=== PATIENT | male | born 1995 | race Caucasian/White ===

== ENCOUNTER → 2022-04-11 | Outpatient (CLI) | payer OTHER, SELFPAY ==
[2022-04-11 11:02] LABS: Pathologist Comment May follow
[2022-04-11 12:51] LABS: AUTO B FLUID DILUENT BKGD CT WBC <0.1 RBC <0.01 (W<.1,R<.01); Appearance /Synovial Fluid Cloudy (CLEAR); Color / Synovial Fluid Yellow (Pale Yellow); Source / Synovial Fluid NOT PROVIDED; Source- Body Fluid SYNOVIAL
[2022-04-11 12:52] LABS: RBC /Synovial Fluid 0.004 10^6/uL (0); Synovial Fld Mononuclear WBC # 6.544 10^3/ul; Synovial Fld Mononuclear WBC % 13.6 %; Synovial Fld Polynuclear WBC % 86.4 %
[2022-04-11 12:53] LABS: Lymph 2 %; Monocyte /Synovial Fluid 4 %; Neutrophil 94 % (0-25)
[2022-04-11 12:54] LABS: Body Fluid QC Type(s) BF1Q
[2022-04-11 12:57] LABS: CRYSTALS, BODY FLUID NO CRYSTALS SEEN
[2022-04-13 09:40] LABS: Pathologist Review Reviewed
== END | disposition home or self-care (01) ==
LOC: LABSPEC 10:49
PROVIDERS: PCP Family Medicine; Visit Provider Orthopaedic Surgery
DX: S83.91XA Sprain of unspecified site of right knee, initial encounter (principal); M25.461 Effusion, right knee; X58.XXXA Exposure to other specified factors, initial encounter
CPT/HCPCS: 87015; 87070; 87075; 87101; 87116; 87205; 87206; 89050; 89051; 89060

== ENCOUNTER → 2022-04-12 | Outpatient (CLI) | payer OTHER, SELFPAY ==
[2022-04-12 10:22] LABS: Absolute Lymphocyte Count 1.82 X10^3/uL (0.83-4.51); Absolute Neutrophil Count 5.6 X10^3/uL (2.0-7.7); Basophil# 0.04 X10^3/uL; Basophil% 0.5 % (0-1); Eosinophil# 0.21 X10^3/uL; Eosinophils% 2.5 % (0-5); Hematocrit 46.4 % (40-54); Hemoglobin 15.6 g/dL (13.0-16.5); Lymphocyte # 1.82 X10^3/ul (0.83-4.51); Lymphocyte % 21.3 % (19-41); Mean Corp Hgb Conc 33.6 g/dL (32-36); Mean Corpuscular Hgb 29.7 pg (27.0-32.0); Mean Corpuscular Volume 88.4 fL (80-94); Monocyte# 0.81 X10^3/uL; Monocyte% 9.5 % (0-10); NRBC Flagged by Analyzer 0 % (0-5); Neutrophil # 5.62 X10^3/uL (2.7-7.7); Neutrophil % 65.7 % (47-70); Platelet Count 302 K/mm3 (150-450); RBC Distribution Width CV 11.4 % (11.6-14.6); RBC Distribution Width SD 36.8 fl (35.1-43.9); Red Blood Count 5.25 M/mm3 (4.6-6.2); White Blood Count 8.5 K/mm3 (4.4-11.0)
[2022-04-12 10:24] LABS: Erythrocyte Sedimentation Rate 10 mm/hr (0-20)
== END | disposition home or self-care (01) ==
LOC: LAB 09:26
PROVIDERS: PCP Family Medicine; Referring Provider Orthopaedic Surgery; Visit Provider Orthopaedic Surgery
DX: M25.461 Effusion, right knee (principal)
CPT/HCPCS: 36415; 85025; 85652; 86140

== ENCOUNTER 2022-04-16 16:21 | Inpatient (IN) | payer OTHER, SELFPAY ==
[2022-04-16] VITALS (9 sets, daily range): BP systolic 111–168; BP diastolic 50–99; PULSE 74–118; RESP 16–20; TEMP 36.9–37.7; O2SAT 97–100; BMI 27.8
[2022-04-16] MEDS: Lactated Ringers 1,000 ML 15 ML IV (14:44)
--- NOTE | 2022-04-16 16:45 | PCM.OP.BLANK ---
Problems Associated Problem List Diagnoses (1) Effusion of knee joint right: Operative Report Date of Procedure: 04/16/22 Preoperative diagnosis: Right knee effusion, possible septic knee Postoperative diagnosis : Same Procedure: Diagnostic video arthroscopy, right knee arthroscopic irrigation and debridement, cultures fluid and soft tissue, drain placement Surgeon: Dr. Denver Tenorio Anesthesia: General Special medications: Ancef 1 g IV given after cultures obtained. Indications for surgery: Patient is a 26 -year-old male with a 3-4 week history of right knee pain, swelling. Patient failed adequate nonoperative treatment for the knee pain. Fluid studies and laboratory work discussed with patient. Due to persistent symptoms they wish to proceed with knee arthroscopy. Findings: Intraoperative findings were consistent with preoperative history, physical, radiographic exam. Large knee effusion and hypertrophic synovium consistent with probable infection Details of procedure: Patient was taken to the OR transfer to the OR table. Nonoperative limb was appropriately padded, RENEA hose and SCD applied. Patient was placed under the anesthetic agent. Operative knee was examined. No signs of infection. Operative upper thigh was well-padded and ultimately placed in a well-padded thigh bhagat. Operative lower extremity was prepped and draped in usual orthopedic sterile fashion for the procedure. Local anesthetic agent was sterilely injected into the proposed arthroscopic portals. Lateral portal was established with a knife. Took us through skin only. Dull trocar took us into the joint. The scope was placed through the lateral portal. Large knee effusion noted. Fluid sent for appropriate studies, cultures. Medial portal and ultimately established using a spinal needle followed by a knife through skin, followed by a dull trocar into the joint. Probe was placed to the medial portal. Patellofemoral joint: No significant arthritis was noted. Patella tracked nicely. No significant plica noted. Diffuse synovitis noted throughout all compartments of knee and arthroscopicly debrided. Arthroscopic grasper used to remove tissue at the anterior knee and patellofemoral joint for cultures. Medial and lateral gutter: No loose bodies or pathology noted other than synovitis Intercondylar notch: ACL appeared within normal limits. Nice resting tension. No loose bodies or cystic changes noted. Synovitis noted in the anterior soft tissue Medial compartment: Chondral surfaces were within normal limits. No obvious medial meniscus tear noted and compartment fully probed. Synovitis noted Lateral compartment: Chondral surfaces are within normal limits. No obvious lateral meniscus tear noted, and compartment fully probed. Synovitis noted Posterior medial compartment: No loose bodies or pathology noted. Posterior lateral compartment: No loose bodies or pathology noted. Arthroscopic pictures were taken and saved throughout the procedure. I did place a drain at the superior lateral knee, medium Hemovac. Knee was drained of excess fluid. Arthroscopic instruments were removed. Arthroscopic portals closed with simple sutures of 4-0 nylon. Drain site closed with a 4-0 nylon. Drain was not sutured in place. Drain held in place with long Steri-Strips. . sterile bandage was applied. Patient was transferred to the room bed and recovery room in satisfactory condition. Patient will be admitted. Infectious disease service consulted. Case previously discussed with Dr. Sapp. They will be discharged to home when stable and okay with infectious disease service., follow-up in the office in 7-10 days. Patient and the family understand discharge instructions, all of their questions answered. This note was generated with [employer] software. It may contain incorrect words, spelling, and punctuation that were not noted in checking the note before signing.
[2022-04-16] MEDS: Cefazolin 1 GM/50 ML BAG IV (17:29)
[2022-04-16 17:41] LABS: Pathologist Comment May follow
[2022-04-16] MEDS: Epinephrine (1 mg/ml) 1 MG/ML VIAL (17:49)
[2022-04-16 17:55] LABS: Synovial Fld Mononuclear WBC # 4.907 10^3/ul; Synovial Fld Mononuclear WBC % 19.5 %; Synovial Fld Polynuclear WBC % 80.5 %
[2022-04-16 18:05] LABS: RBC /Synovial Fluid 0.008 10^6/uL (0)
[2022-04-16 18:09] LABS: AUTO B FLUID DILUENT BKGD CT WBC <0.1 RBC <0.01 (W<.1,R<.01); Color / Synovial Fluid Yellow (Pale Yellow); Source / Synovial Fluid RIGHT KNEE; Source- Body Fluid SYNOVIAL; Viscosity / Synovial Fluid Sl. Viscous (HIGH)
[2022-04-16 18:10] LABS: Appearance /Synovial Fluid Turbid (CLEAR)
[2022-04-16 18:11] LABS: CRYSTALS, BODY FLUID NO CRYSTALS SEEN
[2022-04-16 18:26] LABS: Lymph 3 %; Neutrophil 97 % (0-25)
[2022-04-16 19:26] LABS: Body Fluid QC Type(s) BF1Q,BF2Q
[2022-04-16] MEDS: 0.9% Normal Saline 1,000 ML 120 ML IV (20:12)
[2022-04-16] MEDS: HYDROcodone Bitartrate/Apap 5/325 Tablet PO (22:39)
[2022-04-17] VITALS (7 sets, daily range): BP systolic 140–156; BP diastolic 81–95; PULSE 90–98; RESP 16–18; TEMP 36.6–37.1; O2SAT 97–100
[2022-04-17] MEDS: Cefazolin 1 GM/50 ML BAG IV (06:11)
[2022-04-17] MEDS: 0.9% Normal Saline 1,000 ML 120 ML IV ×2 (06:12→13:46)
[2022-04-17] MEDS: HYDROcodone Bitartrate/Apap 5/325 Tablet PO ×3 (06:12→20:20)
--- NOTE | 2022-04-17 07:26 | PCM.PN.ORT ---
Subjective Subjective Patient is a 26-year-old male who underwent irrigation debridement of right knee yesterday evening for suspected underlying septic right knee joint. Patient states that knee has been fairly painful. May be slightly worse than before surgery. He does feel the pain medicines are helping. He currently denies any chest pain shortness of breath dizziness or calf pain. No adverse events overnight. Objective Data Objective Data Patient has significant other at bedside during exam. He is alert and oriented x3. No acute distress at rest. Breathing easily without respiratory distress. Inspection of right knee reveals intact dressing without active drainage. Drain is intact. Minimal bloody drainage within the Hemovac drain. (Per nursing documentation there was 30 cc of bloody drainage from postsurgical and so 4 AM) there is stiffness and pain for attempted needing mobility. Negative Mireille bilaterally without signs DVT. Pedal pulses present equal bilaterally. Sensation intact to light touch bilaterally. Neurovascularly intact. Vital Signs: Vital Signs Temp Pulse Resp BP Pulse Ox O2 Del Method 97.9 F 92 16 151/83 H 99 Room Air 04/17/22 04:02 04/17/22 04:02 04/17/22 04:02 04/17/22 04:02 04/17/22 04:02 04/17/22 04:02 Oxygen Delivery Method Room Air Weight: 90.4 kg Body Mass Index (BMI) 27.8 Intake & Output: Intake and Output for Last 24 Hours 04/15/22 04/16/22 04/17/22 23:59 23:59 23:59 Intake Total 50 / 50 2082.75 / 2082.75 Output Total 30 / 30 Balance 50 / 50 2052.75 / 2052.75 Lab / Micro Data Labs: Laboratory Results - last 24 hr 04/16/22 17:39: Fluid Crystals NO CRYSTALS SEEN, Fluid Crystal Source SYNOVIAL, Fl Crystal Path Review Will follow, Synovial Source RIGHT KNEE, Synovial Color Yellow, Synovial Appearance Turbid, Synovial Viscosity Sl. Viscous, Synovial WBC 23.4200 H, Synovial RBC 0.008 H, Synovial Tot Cell Ct 23.7500 H, Synov Polynuclear WBCs 20.203, Synov Mononuclear WBCs 4.907, Synovial Neutrophils 97 H, Synovial Lymphocytes 3, Synovial Polynuclear % 80.5, Synovial Mononuclear % 19.5, Synovial Path Comment May follow Assessment & Plan Assessment/Plan (1) Effusion of knee joint right: PLAN: -Status post irrigation debridement of suspected underlying septic right knee joint postoperative day #1 -Continue [place] as prescribed as needed for pain -DVT prophylaxis bilateral teds SCDs and aspirin 81 mg twice daily -We will consult hospitalist group secondary to patient's elevated blood pressure to determine if treatment is necessary -Consultation requested per infectious disease Dr. Sapp for postoperative antibiotic management -Begin PT/OT weightbearing as tolerated right lower extremity with a walker/cane as needed for stability and balance. Okay for gentle knee mobility as tolerated -Plan to continue with Hemovac drain at this time. Continue to monitor output possibility of drain removal later this evening or tomorrow morning -Case and findings were discussed and reviewed with Dr. Denver Tenorio this morning. He agrees with the above-stated plan of care
[2022-04-17] MEDS: Aspirin E.C. 81 MG Tablet PO ×2 (08:33→17:11)
--- NOTE | 2022-04-17 09:35 | PN.HOSP_ITS ---
Reason for Visit Reason for Visit: Diagnoses Effusion, right knee (04/16/22) Subjective Subjective Patient is a 26-year-old gentleman who underwent Diagnostic video arthroscopy, right knee arthroscopic irrigation and debridement, cultures fluid and soft tissue, drain placement by Dr. Denver Tenorio on 04/16/2022. The hospitalist service was consulted to assist with management of patient medical comorbidities including elevated blood pressure Objective Data Objective Data Vital Signs: Vital Signs Temp Pulse Resp BP Pulse Ox O2 Del Method 98.7 F 90 18 149/81 H 100 Room Air 04/17/22 07:49 04/17/22 07:49 04/17/22 07:49 04/17/22 07:49 04/17/22 07:49 04/17/22 07:49 Oxygen Delivery Method Room Air Weight: 90.4 kg Body Mass Index (BMI) 27.8 Intake & Output: Intake and Output for Last 24 Hours 04/15/22 04/16/22 04/17/22 23:59 23:59 23:59 Intake Total 50 / 50 2082.75 / 2082.75 Output Total 45 / 45 Balance 50 / 50 2037.75 / 2037.75 Lab / Micro Data Labs: Laboratory Results - last 24 hr 04/16/22 17:39: Fluid Crystals NO CRYSTALS SEEN, Fluid Crystal Source SYNOVIAL, Fl Crystal Path Review Will follow, Synovial Source RIGHT KNEE, Synovial Color Yellow, Synovial Appearance Turbid, Synovial Viscosity Sl. Viscous, Synovial WBC 23.4200 H, Synovial RBC 0.008 H, Synovial Tot Cell Ct 23.7500 H, Synov Polynuclear WBCs 20.203, Synov Mononuclear WBCs 4.907, Synovial Neutrophils 97 H , Synovial Lymphocytes 3, Synovial Polynuclear % 80.5, Synovial Mononuclear % 19.5, Synovial Path Comment May follow Micro: Microbiology 04/16/22 17:39 Tissue - Knee Wound Culture - Preliminary No growth-Final to follow 04/16/22 17:39 Aspirate - Knee Wound Culture - Preliminary No growth-Final to follow Physical Exam Narrative GENERAL: cooperative HEENT: Atraumatic; normocephalic EYES; Anicteric, Normal Conjunctiva NECK; supple, normal thyroid, RESPIRATORY: Diminished to auscultation CARDIOVASCULAR: Regular S1 S2, GI: soft, normoactive bowel sounds, : No Renal angle tenderness; EXTREMITIES: No edema, no clubbing, MUSCULOSKELETAL: Right knee in surgical dressing NEURO: Awake; no lateralizing signs. SKIN: No Rash PSYCH; Flat affect Assessment & Plan Assessment/Plan (1) Effusion of knee joint right: PLAN: Plan Patient is a 26-year-old gentleman who underwent Diagnostic video arthroscopy, right knee arthroscopic irrigation and debridement, cultures fluid and soft tissue, drain placement by Dr. Denver Tenorio on 04/16/2022. The hospitalist service was consulted to assist with management of patient medical comorbidities including elevated blood pressure 1. Suspected septic arthritis ?underwent Diagnostic video arthroscopy, right knee arthroscopic irrigation and debridement, cultures fluid and soft tissue, drain placement by Dr. Denver Tenorio on 04/16/2022. Patient was started on broad-spectrum antibiotic therapy consult placed to ID. 2. Elevated blood pressure ? Patient is not a known hypertensive possibly reactive secondary to pain we will monitor and order hydralazine 10 mg every 4 hours as needed for systolic blood pressure greater than 160 3. DVT prophylaxis ? Low risk Time spent in the patient's overall evaluation,decision-making process, review of diagnostic data, adjustment of management, discussion with other providers, nursing nursing and ancillary staff involved in patient's care documentation, 55 Minutes Charges/Coding Visit Charges Inpatient E&M: 84579 Init Hosp L2
--- NOTE | 2022-04-17 10:27 | CON.PCM.ID_ITS ---
Assessment & Plan Assessment/Plan (1) Effusion of knee joint right: PLAN: 04/11/22 knee aspiration with 47k wbc, 94% neutrophils, cx neg. Taken to OR 04/16/[address] Tenorio for I&D. Gram stain neg, surg cx pending. Will check gonorrhea/chlamydia and lyme. No recent diarrheal illness. Will change abx to ceftriaxone for once daily dosing. Will follow, thank you HPI Consult Data Date of Consult: 04/17/22 HPI Narrative Reason for Consultation: septic arthritis HPI Narrative: KRYSTA BANEGAS, is a 26 M who presented with R knee pain starting around the 11 of March. Had R knee sprain in fall 2020, no issues since then. No known inciting event. No fever, chills, night sweats, or rash. No other joint involvement. Did have some tick bites over the summer, never had bullseye rash. No dysuria or penile discharge. Knee became swollen and painful, worse with weight bearing. No drainage. Saw ortho, had aspiration done 04/11/22 with heavy purulence seen but neg cx. Taken to OR 04/16/[address] Tenorio for I&D. Large effusion drained and samples sent to lab. Started on cefazolin, feeling ok this AM. Full ROS performed and neg except as noted above. COUNTS INCLUDE 234 BEDS AT THE [facility] Medical History Non-smoker Home Medications NK 04/13/22 [History Last Taken Unknown] Allergy/AdvReac Type Severity Reaction Status Date / Time No Known Allergies Allergy Verified 04/16/22 14:34 Social History Smoking Status: Never smoker Physical Exam Const alert, oriented x3 and no apparent distress General Appearance: cooperative and well developed HEENT normocephalic and head/scalp atraumatic Eyes PERRL and EOMs intact bilaterally Neck supple and No nodes Resp normal air movement and clear to auscultation bilaterally Cardio regular rate and regular rhythm GI soft to palpation, non-tender and non-distended Extremity General Extremity: Negative for edema Skin no rashes or lesions noted Skin Narrative: No nail pitting. Neuro CN's II-XII intact bilaterally Lab / Micro Data Attestation: I reviewed the patient's lab results. Labs: Laboratory Results - last 24 hr 04/16/22 17:39: Fluid Crystals NO CRYSTALS SEEN, Fluid Crystal Source SYNOVIAL, Fl Crystal Path Review Will follow, Synovial Source RIGHT KNEE, Synovial Color Yellow, Synovial Appearance Turbid, Synovial Viscosity Sl. Viscous, Synovial WBC 23.4200 H, Synovial RBC 0.008 H, Synovial Tot Cell Ct 23.7500 H, Synov Polynuclear WBCs 20.203, Synov Mononuclear WBCs 4.907, Synovial Neutrophils 97 H , Synovial Lymphocytes 3, Synovial Polynuclear % 80.5, Synovial Mononuclear % 19.5, Synovial Path Comment May follow Micro: Microbiology 04/16/22 17:39 Tissue - Knee Wound Culture - Preliminary No growth-Final to follow 04/16/22 17:39 Aspirate - Knee Wound Culture - Preliminary No growth-Final to follow
[2022-04-17 12:04] LABS: Pathologist Review Reviewed
--- NOTE | 2022-04-17 16:39 | CASEMGMT ---
Addendum entered by Symone Francisco 04/17/22 17:12: Per therapy, pt ambulated well w/cane. Original Note: RN?CM?MACHINE I ENGRAVER?CM?to room to meet with patient for initial transition planning/care coordination?assessment.?RN?CM?introduced self and role at [facility].? Pt voices understanding and consents to?assessment?at this time.? Pt resting in bed in no distress at this time. @ bedside.? Pt is A/O at this time and answers all questions appropriately.?? Care providers, pharmacy, and demographics verified/updated at this time. PCP: Dr Rogers Specialists:Merline Tenorio Preferred Pharmacy: [facility] Retail Insurance: [employer] Prescription Benefit:?pt thinks he has prescription coverage, but not sure Living Will/HPOA:?Pt does not currently have LW/HCPOA LNOK: Tracie Living Arrangements: Lives w/ in one-story home w/basement w/2 steps to enter. No railing on stairs. Independent previously. Transportation:?Pt states drives self and states no transportation concerns at this time.? also drives. DME: States has the following DME:?cane. HHC/SNF: No hx of either. Pt wishes to return home and states has no concerns with going home at time of discharge.? ?CM?to follow for any further discharge planning/needs.? Pt voices no further concerns/needs at this time.? Advised pt to ask for?CM?if any further questions/concerns/needs arise.? Voices understanding. PLAN:??Home. Follow for possible IV atb's @ discharge and possible need of crutches or walker. PT/OT nilayals pending. Oneyda HAQN?RN?CM
--- NOTE | 2022-04-18 07:22 | PCM.PN.HOSP ---
Reason for Visit Reason for Visit: Diagnoses Effusion, right knee (04/16/22) Subjective Subjective Seen complains of some stiffness in the right knee. Patient blood pressure trending down but still remains elevated Objective Data Objective Data Vital Signs: Vital Signs Temp Pulse Resp BP Pulse Ox O2 Del Method 98.6 F 92 16 140/82 H 100 Room Air 04/17/22 23:59 04/17/22 23:59 04/17/22 23:59 04/17/22 23:59 04/17/22 23:59 04/17/22 23:59 Oxygen Delivery Method Room Air Weight: 90.4 kg Body Mass Index (BMI) 27.8 Intake & Output: Intake and Output for Last 24 Hours 04/16/22 04/17/22 04/18/22 23:59 23:59 23:59 Intake Total 50 / 50 3690.75 / 3690.75 0 / 0 Output Total 45 / 45 Balance 50 / 50 3645.75 / 3645.75 0 / 0 Lab / Micro Data Labs: Laboratory Results - last 24 hr 04/16/22 17:39: Fl Crystal Path Review Reviewed Micro: Microbiology 04/16/22 17:39 Tissue - Knee Gram Stain - Final 04/16/22 17:39 Tissue - Knee Wound Culture - Preliminary No growth-Final to follow 04/16/22 17:39 Aspirate - Knee Gram Stain - Final 04/16/22 17:39 Aspirate - Knee Wound Culture - Preliminary No growth-Final to follow Physical Exam Narrative GENERAL: cooperative HEENT: Atraumatic; normocephalic EYES; Anicteric, Normal Conjunctiva NECK; supple, normal thyroid, RESPIRATORY: Diminished to auscultation CARDIOVASCULAR: Regular S1 S2, GI: soft, normoactive bowel sounds, : No Renal angle tenderness; EXTREMITIES: No edema, no clubbing, MUSCULOSKELETAL: Right knee in surgical dressing NEURO: Awake; no lateralizing signs. SKIN: No Rash PSYCH; Flat affect Assessment & Plan Assessment/Plan (1) Effusion of knee joint right: PLAN: Plan Patient is a 26-year-old gentleman who underwent Diagnostic video arthroscopy, right knee arthroscopic irrigation and debridement, cultures fluid and soft tissue, drain placement by Dr. Denver Tenorio on 04/16/2022. The hospitalist service was consulted to assist with management of patient medical comorbidities including elevated blood pressure 1. Suspected septic arthritis ?underwent Diagnostic video arthroscopy, right knee arthroscopic irrigation and debridement, cultures fluid and soft tissue, drain placement by Dr. Denver Tenorio on 04/16/2022. Patient was started on broad-spectrum antibiotic therapy consult placed to ID. 2. Elevated blood pressure ? Patient is not a known hypertensive possibly reactive secondary to pain we will monitor and order hydralazine 10 mg every 4 hours as needed for systolic blood pressure greater than 160 3. DVT prophylaxis ? Low risk Time spent in the patient's overall evaluation,decision-making process, review of diagnostic data, adjustment of management, discussion with other providers, nursing nursing and ancillary staff involved in patient's care documentation, 38 Minutes Charges/Coding Visit Charges Inpatient E&M: 53629 Subs Hosp L2
--- NOTE | 2022-04-18 07:37 | PCM.PN.ORT ---
Subjective Subjective Patient continues with adequate pain control in the right knee. Pain medicines are helping. No adverse events overnight. He did stand and ambulate with physical therapy yesterday. It went well. He has been attempting to work on mobility exercises of the right knee. Denies chest pain shortness of breath dizziness or calf pain. He was evaluated by infectious disease and hospitalist yesterday. Objective Data Objective Data Patient is alert and oriented x3 no acute distress at rest breathing easily without respiratory distress. Significant other is present during the exam. Inspection of right knee is with dressing intact Hemovac is with approximately 20 cc of bloody drainage (this is 24 hours of drainage). Gentle mobility of the right knee is with stiffness. Negative Mireille bilaterally without signs of DVT. Sensation intact light touch pedal pulses present equal bilaterally patient is able to actively plantar and dorsiflex bilateral ankles against resistance neurovascularly intact Procedure note: Under sterile conditions the Hemovac drain was removed from the right knee. Steri-Strip was applied over drain removal site. Compressive multilayer dressing was applied to the right knee. Patient tolerated procedure well. Gentle mobility of right knee post drain removal was with improvement of his pain. Vital Signs: Vital Signs Temp Pulse Resp BP Pulse Ox O2 Del Method 98.6 F 92 16 140/82 H 100 Room Air 04/17/22 23:59 04/17/22 23:59 04/17/22 23:59 04/17/22 23:59 04/17/22 23:59 04/17/22 23:59 Oxygen Delivery Method Room Air Weight: 90.4 kg Body Mass Index (BMI) 27.8 Intake & Output: Intake and Output for Last 24 Hours 04/16/22 04/17/22 04/18/22 23:59 23:59 23:59 Intake Total 50 / 50 3690.75 / 3690.75 0 / 0 Output Total 45 / 45 Balance 50 / 50 3645.75 / 3645.75 0 / 0 Lab / Micro Data Labs: Laboratory Results - last 24 hr 04/16/22 17:39: Fl Crystal Path Review Reviewed Micro: Microbiology 04/16/22 17:39 Tissue - Knee Gram Stain - Final 04/16/22 17:39 Tissue - Knee Wound Culture - Preliminary No growth-Final to follow 04/16/22 17:39 Aspirate - Knee Gram Stain - Final 04/16/22 17:39 Aspirate - Knee Wound Culture - Preliminary No growth-Final to follow Assessment & Plan Assessment/Plan (1) Effusion of knee joint right: PLAN: -Status post irrigation debridement of suspected underlying septic right knee joint postoperative day #2 -Continue [place] as prescribed as needed for pain -DVT prophylaxis bilateral teds SCDs and aspirin 81 mg twice daily -Per hospitalist they believe that elevated blood pressures are secondary to underlying pain they did add hydralazine to be used as needed for systolic pressures greater than 160. Continue management per hospitalist -Per infectious disease/Dr. Sapp patient's IV antibiotic has been switched to ceftriaxone. Awaiting results for gonorrhea chlamydia and Lyme antibodies. Continue management per infectious disease for discharge planning -Continue PT/OT weightbearing as tolerated right lower extremity with a walker/cane as needed for stability and balance.? Okay for gentle knee mobility as tolerated -Continue discharge planning with case management -Case and findings were discussed and reviewed with Dr. Denver Tenorio this morning.? He agrees with the above-stated plan of care. Patient is orthopedically stable and okay for discharge to home when infectious disease has determined appropriate medical therapy for discharge. We will await IDs assessment and medical decision making today.
[2022-04-18 07:54] VITALS: BP 150/84; PULSE 104; RESP 18; TEMP 36.9; O2SAT 98
[2022-04-18 08:00] VITALS: BP 145/70; PULSE 96; RESP 16; TEMP 37; O2SAT 97
[2022-04-18] MEDS: Aspirin E.C. 81 MG Tablet PO ×2 (09:33→18:14)
[2022-04-18] MEDS: 0.9% Saline Lock 10 ML Syringe IV (10:21)
[2022-04-18 12:55] VITALS: BP 154/75; PULSE 126; RESP 18; TEMP 36.5; O2SAT 100
--- NOTE | 2022-04-18 13:16 | PCM.PN.ID ---
Physical Exam Narrative Feeling better, walking some, no fever, no n/v/d. Const alert and no apparent distress General Appearance: cooperative Resp normal air movement and clear to auscultation bilaterally Cardio regular rate and regular rhythm GI soft to palpation, non-tender and non-distended Skin no rashes or lesions noted ID ID: Route of nutrition/ use of supplements: [] Nutritional Intake: [] IV Site: [] Pantoja Catheter: [] Assessment & Plan Assessment/Plan (1) Effusion of knee joint right: PLAN: 04/11/22 knee aspiration with 47k wbc, 94% neutrophils, cx neg. Taken to OR 04/16/[address] Tenorio for I&D. Gram stain neg, surg cx neg so far. Checking gonorrhea/chlamydia and lyme. No recent diarrheal illness. Ok for home with 3 weeks total abx, will write for po doxy and cefdinir. Will follow as needed, d/w therapeutic case manager
[2022-04-18 15:10] VITALS: BP 150/91; PULSE 112; RESP 18; TEMP 37; O2SAT 100
--- NOTE | 2022-04-18 15:19 | CT_ITS ---
STUDY: CTA CHEST REASON FOR EXAM: Male, 26 years old. Tachycardia RADIATION DOSAGE (If Supplied By Facility): CTDIvol = ( 9.92 ) mGy, DLP = ( 320.32 ) mGycm TECHNIQUE: The examination was performed with the intravenous administration of IV 90mL Isovue-370. Post-processing of the angiographic images was performed, with multiplanar reformation and 3D reconstruction. Individualized dose optimization techniques were used for this CT. COMPARISON: None. FINDINGS: Normal enhancement of the main pulmonary artery and right and left pulmonary arteries. Normal enhancement of the bilateral peripheral pulmonary arteries. There is no demonstrated pulmonary embolism. Normal thoracic aorta and visualized great vessels. There is no demonstrated aortic dissection. Normal heart and pericardium. Normal mediastinum. Normal hilar regions. Normal visualized trachea and bronchi. The lungs are well expanded. Normal pulmonary parenchyma. Normal pleura. Normal chest wall structures. Normal thoracolumbar vertebral alignment. Left renal atrophy and hydronephrosis partially visualized. CT/CTA Chest W/WO Contrast IMPRESSION: Normal CTA chest examination, without a demonstrated pulmonary embolism or arterial dissection. Partially visualized left renal atrophy and hydronephrosis. Electronically Signed: Amanuel Fox MD at 18:43 EST ,
--- NOTE | 2022-04-18 15:20 | VDLE_ITS ---
Reason For Study: Shortness of breath RIGHT LEFT GSV is normal. GSV is normal. CFV is compressible, spontaneous, phasic, CFV is compressible, spontaneous, phasic, competent and demonstrates normal competent, and demonstrates normal augmentation. augmentation. FV is compressible, spontaneous, phasic, FV is compressible, spontaneous, phasic, competent and demonstrates normal competent and demonstrates normal augmentation. augmentation. PTV is compressible. POP V is compressible, spontaneous, phasic, RT PerV is compressible. competent and demonstrates normal Unable to visualize right PopV and T/P trunk augmentation. due to wrapping and bandages s/p surgery. T/P Trunk is compressible. Procedure PTV is compressible. This is a venous duplex using B-mode, color LT PerV is compressible. flow and spectral Doppler. Exam performed portable in patient room. A preliminary report was called and/or faxed to Tona SALDAÑA. VL/Venous Duplex US - Adalberto Extrem Interpretation Summary No evidence for acute deep venous thrombosis bilateral lower extremities with p atent and compressible bilateral great saphenous veins. Limited exam as noted per risain gs. Ordering Physician: Aron Calle Referring Physician: Dylan Rogers Performed By: Lisset Luna RVT
[2022-04-18 15:21] LABS: Chlamydia Trachomatis by PCR Negative (Negative); Neisserai gonorrhoeae by PCR Negative (Negative); Probe Check PASS; Sample Adequacy Control PASS; Specimen Processing Control PASS
[2022-04-18 17:12] LABS: D-Dimer Quantitative (DVT/PE) 0.67 FEU/ug/m (0.27-0.49)
--- NOTE | 2022-04-18 17:40 | PCM.DC ---
Discharge Instructions Diet Discharge Diet: No restrictions Activity Discharge Activity: May Not Drive (while taking narcotic pain medications.) May shower in (days): 1 Ice area for (Minutes): 20 (Ice area for 20 minutes each hour while awake) Weight Bearing Status: Weight bearing as tolerated Keep extremity elevated above heart level: Operative Extremity Dressing / Incision Call your doctor if your incision/area has: Continuous Slow Oozing, Sudden Increased Bleeding, Increased Pain/ Swelling, Increased Redness and Foul Smelling Discharge Call your doctor if you observe: Fever of 101 or Higher, Coldness, Increased Pain, Numbness or Tingling and Change in Color Follow Up Care When: F/U with [facility] 7-10days post op Test Results: Test results from this visit will be discussed in further detail at your follow-up appointment, if applicable. Discharge Plan Admission Admit Date/Time: 04/16/22 16:21 Attending Provider: Denver Tenorio Primary Care Provider: Dylan Rogers Consulting Providers: Thomas Sapp ; Aron Calle Discharge Orders/Prescriptions Prescriptions: New cefdinir 300 mg capsule 300 mg PO BID Qty: 38 0RF doxycycline hyclate 100 mg capsule 100 mg PO BID Qty: 38 0RF metoprolol succinate 25 mg tablet extended release 24 hr 25 mg PO DAILY Qty: 30 0RF aspirin 81 mg Tablet,Delayed Release (Dr/Ec) 81 mg PO BIDCM Qty: 60 0RF hydrocodone-acetaminophen 5-325 mg Tablet 1 - 2 tab PO Q6H PRN PRN (Reason: Pain Score 1-5) 7 Days Qty: 60 0RF Referrals / Follow Up: Dylan Rogers DO [Primary Care Provider] - Disposition Disposition (needs filled in before D/C Order can be placed): Home, Self Care
== END 2022-04-18 19:27 | disposition home or self-care (01) | DRG 550 ==
LOC: MS3 04-17 10:26
PROVIDERS: Internal Medicine; Internal Medicine Infectious Disease; Admitting Provider Orthopaedic Surgery; PCP Family Medicine; Referring Provider Orthopaedic Surgery; Visit Provider Orthopaedic Surgery
PROC: 0HDKXZZ Extraction of Right Lower Leg Skin, External Approach (ICD-10-PCS; CPT 29870; principal; 2022-04-16 15:10)
DX: M00.9 Pyogenic arthritis, unspecified (principal); M25.461 Effusion, right knee; M65.869 Other synovitis and tenosynovitis, unspecified lower leg; R03.0 Elevated blood-pressure reading, without diagnosis of hypertension
CPT/HCPCS: 36415; 71275; 85379; 86618; 87015; 87070; 87075; 87102; 87116; 87205; 87206; 87491; 87591; 89050; 89051; 89060; 93970; 97161; 97530; J7030; J7120; Q9967; A4216; J0696; J2405